=== PATIENT | male | born 1975 | race Caucasian/White ===

== ENCOUNTER 2019-10-01 17:02 | Emergency (ER) | payer OTHER ==
[~2019-10-01] VITALS: Ht 172.7 cm; Wt 89.1 kg
[2019-10-01 17:07] VITALS: BP 135/67
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
--- NOTE | 2019-10-01 17:34 | NUR ---
PT BROUGHT TO CT AT THIS TIME
[2019-10-01] MEDS ORDERED: HYDROcodone/APAP 5/325 MG 1 TAB TAB PO ONE (18:15)
[2019-10-01] MEDS ORDERED: KETOROLAC 60 MG/2 ML VIAL IM ONE (18:15)
[2019-10-01 18:41] VITALS: BP 135/67
--- NOTE | 2019-10-01 18:42 | NUR ---
DPatient discharged with v/s stable. Written and verbal after care instructions given and explained. Patient alert, oriented and verbalized understanding of instructions. Ambulatory with steady gait. All questions addressed prior to discharge. ID band removed. Patient advised to follow up with PMD. Rx of NAPROSYN, NORCO given. Patient educated on indication of medication including possible reaction and side effects. Opportunity to ask questions provided and answered.
== END 2019-10-01 18:42 | disposition home or self-care (01) ==
LOC: MED 17:02
DX: S00.03XA Contusion of scalp, initial encounter (principal); F17.210 Nicotine dependence, cigarettes, uncomplicated; M54.2 Cervicalgia; R10.9 Unspecified abdominal pain; Z98.890 Other specified postprocedural states; V49.49XA Driver injured in collision with other motor vehicles in traffic accident, initial encounter; Y93.89 Activity, other specified; Y92.89 Other specified places as the place of occurrence of the external cause; Y99.8 Other external cause status
CPT/HCPCS: 70450; 72125; 96372; 99285; J1885

== ENCOUNTER 2020-03-06 22:54 | Emergency (ER) | payer SELFPAY ==
[~2020-03-06] VITALS: Ht 165.1 cm; Wt 88.5 kg
[2020-03-06 23:03] VITALS: BP 130/74
--- NOTE | 2020-03-06 23:11 | NUR ---
PT AMBULATED TO ER BED 11 W/ STEADY GAIT.
[2020-03-06] MEDS ORDERED: LIDOCAINE/EPI 1% 1:100000 20 ML VIAL INJ ONE (23:20)
--- NOTE | 2020-03-06 23:32 | NUR ---
pt taken to CT via w/c
--- NOTE | 2020-03-06 23:40 | NUR ---
pt returned from CT via w/c
--- NOTE | 2020-03-06 23:44 | NUR ---
Suture setup completed.
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
[2020-03-07] MEDS ORDERED: KETOROLAC 30 MG/ML VIAL IM ONE (00:10)
--- NOTE | 2020-03-07 00:54 | NUR ---
DC Patient discharged with v/s stable. Written and verbal after care instructions given and explained. Patient alert, oriented and verbalized understanding of instructions. Ambulatory with steady gait. All questions addressed prior to discharge. ID band removed. Patient advised to follow up with PMD. Rx of BACITRACIN given. Patient educated on indication of medication including possible reaction and side effects. Opportunity to ask questions provided and answered.
== END 2020-03-07 00:56 | disposition home or self-care (01) ==
LOC: MED 22:54
DX: S01.01XA Laceration without foreign body of scalp, initial encounter (principal); W19.XXXA Unspecified fall, initial encounter; Y93.89 Activity, other specified; Y92.89 Other specified places as the place of occurrence of the external cause; Y99.8 Other external cause status
CPT/HCPCS: 12002; 70450; 72125; 99285; J1885; J2001

== ENCOUNTER 2020-03-30 16:18 | Emergency (ER) | payer SELFPAY ==
[~2020-03-30] VITALS: Ht 162.6 cm; Wt 81.6 kg
[2020-03-30 16:22] VITALS: BP 129/95
--- NOTE | 2020-03-30 16:25 | NUR ---
SUTURE REMOVAL AT [facility].
[2020-03-30 16:29] VITALS: BP 129/95
--- NOTE | 2020-03-30 16:29 | NUR ---
Patient discharged with v/s stable. Written and verbal after care instructions given and explained. Patient verbalized understanding. Ambulatory with steady gait. All questions addressed prior to discharge. Advised to follow up with PMD.
== END 2020-03-30 16:29 | disposition home or self-care (01) ==
LOC: MED 16:18
DX: S01.01XD Laceration without foreign body of scalp, subsequent encounter (principal); X58.XXXD Exposure to other specified factors, subsequent encounter; Z48.02 Encounter for removal of sutures
CPT/HCPCS: 99281